=== PATIENT | male | born 1980 | race Caucasian/White ===

== ENCOUNTER 2016-09-02 14:24 | Emergency (ER) | payer SELFPAY ==
[2016-09-02 16:20] VITALS: BP 131/96
--- NOTE | 2016-09-02 18:42 | Emergency Department Report ---
HPI - General Chief Complaint: Skin/Abscess/Foreign Body Time Seen by Provider: 09/02/16 17:02 - HPI HPI: This patient presents to emergency room that he swallowed about. He doesn't know what kind of bad he could be a smaller big bug but he is worried that it's in his ears. Patient reports that his ears feel clogged. Denies any nausea vomiting. Denies any stomach pain. Denies any respiratory distress, swelling of throat or difficulty breathing. ED Past Medical Hx - Past Medical History Previous Medical History?: No - Surgical History Past Surgical History?: No - Family History Family history: no significant - Social History Smoking Status: Never Smoker Substance Use Type: None - Medications Home Medications: Home Medications Medication Instructions Recorded Confirmed Last Taken Type Fluticasone [Flonase] 1 spray NS QDAY #1 bottle 09/02/16 Unknown Rx Loratadine [Claritin] 10 mg PO QDAY #14 tablet 09/02/16 Unknown Rx ED Review of Systems ROS: Stated complaint: SWALLOWED INSECT Other details as noted in HPI Comment: All other systems reviewed and negative Constitutional: denies: chills, fever ENT: congestion, other (ears feels clogged). denies: throat pain Respiratory: denies: cough, shortness of breath, SOB with exertion, SOB at rest , stridor, wheezing Cardiovascular: denies: chest pain, palpitations, edema, syncope Gastrointestinal: other (he reports that he swallowed a bug but doesn't know what type of bronchiolitis.). denies: abdominal pain, nausea, vomiting Musculoskeletal: denies: back pain, arthralgia Skin: denies: rash Neurological: denies: headache Physical Exam - Physical Exam Vital Signs: Vital Signs 09/02/16 16:17 Temperature 98.7 F Pulse Rate 67 Respiratory 18 Rate Blood Pressure 131/96 O2 Sat by Pulse 100 Oximetry General: This is a 46-year-old male well-nourished well-developed in no acute distress. Physical Exam: Head: Normocephalic atraumatic Mouth: Moist, no pharyngeal exudate or erythema. Uvula is midline and oral airway is patent. No facial swelling. No peritonsillar abscesses. Nose: Congested with erythema to mucosa. Clear Drainage. Maxillary and frontal sinuses nontender to palpate Neck: Supple, no C-spine tenderness, no tracheal deviation. Nontender to palpate. no adenopathy Ears: Bilateral TMs congested without erythema. Bilateral EAC without any redness swelling or drainage. e Abdomen: Soft, nontender to palpate in all quadrants, normal bowel sounds in all quadrant and negative CVA tenderness bilaterally. Eyes: Bilateral pupils equal and reactive to light, bilateral EOM intact. Bilateral sclera and conjunctiva without injection. Normal accommodation. No Lungs: Clear to auscultate bilaterally no rhonchi wheezes or rales. Normal work of breathing extremity; No CCE. +2 pulses. No neurovascular compromise Cardiovascular: S1-S2, regular rate rhythm. No murmurs. Skin: clean Dry and intact no rash no lesions Psych: Normal mood and behavior ED Course Vital Signs 09/02/16 16:17 Temperature 98.7 F Pulse Rate 67 Respiratory 18 Rate Blood Pressure 131/96 O2 Sat by Pulse 100 Oximetry - Reevaluation(s) Reevaluation #1: 09/02/16 18:49 Patient stable throughout ED stay. ED Medical Decision Making - Medical Decision Making ED course: He reports status post swallowing about but doesn't know what kind of bug he swallowed. Patient is asymptomatic except he said he has clubbing of is. Pt also with upper respiratory tract infection. Diagnosed with foreign body ingestion and upper respiratory tract infection. The patient to increase his fluid intake and to take Claritin and Flonase. Simvastatin discharged home with prescription for Claritin and Flonase and he is in stable condition. Critical care attestation.: If time is entered above; I have spent that time in minutes in the direct care of this critically ill patient, excluding procedure time. ED Disposition Clinical Impression: Foreign body ingestion Qualifiers: Encounter type: initial encounter Qualified Code(s): T18.9XXA - Foreign body of alimentary tract, part unspecified, initial encounter URI (upper respiratory infection) Qualifiers: URI type: unspecified URI Qualified Code(s): J06.9 - Acute upper respiratory infection, unspecified Disposition: DISCHARGED TO HOME OR SELFCARE Is pt being admited?: No Does the pt Need Aspirin: No Condition: Stable Instructions: Upper Respiratory Infection (ED), Foreign Body Ingestion (ED) Additional Instructions: Please increase her fluid intake. Take Claritin and Flonase to use upper respiratory tract infection If you in fact ingested about, to go in for GI tract and will pass through your feces. Prescriptions: Fluticasone [Flonase] 1 spray NS QDAY #1 bottle Loratadine [Claritin] 10 mg PO QDAY #14 tablet Referrals: [facility] [Outside] - 09/05/16 Forms: Accompanied Note, Work/School Release Form(ED)
== END 2016-09-02 18:53 | disposition home or self-care (01) ==
LOC: ED 14:24
DX: T18.9XXA Foreign body of alimentary tract, part unspecified, initial encounter (principal); J06.9 Acute upper respiratory infection, unspecified; X58.XXXA Exposure to other specified factors, initial encounter; Y93.89 Activity, other specified; Y99.9 Unspecified external cause status; Y92.89 Other specified places as the place of occurrence of the external cause
CPT/HCPCS: 99282